=== PATIENT | female | born 1960 | race Caucasian/White ===

== ENCOUNTER 2020-06-17 16:29 | Emergency (ER) | payer BC, OTHER ==
[~2020-06-17] VITALS: Ht 167 cm; Wt 145.0 kg
[2020-06-17 16:30] VITALS: BP 162/90
--- NOTE | 2020-06-17 17:04 | ED Upper Extremity ---
General Chief Complaint: Laceration Stated Complaint: RT THUMB LAC Nursing Triage Note: RIGHT THUMB AVULSION WHILE CUTTING ONIONS. Nursing Sepsis Screen: No Definite Risk Source: spouse History of Present Illness Date Seen by Provider: June 17, 2020 Time Seen by Provider: 16:30 Initial Comments Patient is a right-handed female who presents with skin avulsion/laceration to the tip of her right thumb pad after incising it with a knife. The tip of the thumbnail is involved. The injury occurred just prior to ED arrival. Tetanus is up-to-date. Pain is moderate. Onset: just prior to arrival Pain/Injury Location: right thumb Method of Injury: incised Modifying Factors: Improves With Other Allergies and Home Medications Allergies Coded Allergies: No Known Drug Allergies (Unverified , 06/20/20) Home Medications Cephalexin 500 Mg Capsule, 500 MG PO TID Prescribed by: LUIS SOTO on 06/20/20 1104 Hydrocodone/Acetaminophen 1 Each Tablet, 1 TAB PO Q4H PRN for PAIN-MODERATE (5- 7) Prescribed by: MARLENE LUCIO on 06/17/20 1712 Last Action: New Order Hydrocodone/Acetaminophen 1 Each Tablet, 1 TAB PO Q4H PRN for PAIN-SEVERE (8-10) Prescribed by: LUIS SOTO on 06/20/20 1104 Patient Home Medication List Home Medication List Reviewed: Yes Review of Systems Constitutional: no symptoms reported EENTM: no symptoms reported Respiratory: no symptoms reported Cardiovascular: no symptoms reported Gastrointestinal: no symptoms reported Genitourinary: no symptoms reported Musculoskeletal: see HPI Skin: no symptoms reported Psychiatric/Neurological: No Symptoms Reported All Other Systems Reviewed Negative Unless Noted: Yes Past Fnllezs-Wbehod-Tponfr Hx Past Med/Social Hx: Reviewed Nursing Past Med/Soc Hx Patient Social History Alcohol Use: Denies Use Smoking Status: Never a Smoker Recent Infectious Disease Expo: No Recent Hopitalizations: No Seasonal Allergies Seasonal Allergies: No Past Medical History Surgeries: Yes Section, Gallbladder, Hysterectomy Respiratory: No Cardiac: No Neurological: No Genitourinary: No Gastrointestinal: No Musculoskeletal: No Endocrine: Yes Hypothyroidsim HEENT: No Cancer: No Psychosocial: No Integumentary: No Blood Disorders: No Physical Exam Vital Signs Vital Signs - First Documented 06/17/20 16:30 Temp 36.3 Pulse 85 Resp 16 B/P (MAP) 162/90 (114) Pulse Ox 96 O2 Delivery Room Air Capillary Refill : Less Than 3 Seconds Height, Weight, BMI Height: '" Weight: lbs. oz. kg; 51.00 BMI Method: General Appearance: no apparent distress Hand: Right, laceration (0.5 x 1 cm deep skin avulsion to tip of right thumb involving tip of distal thumb. Continued oozing, no bone involvement. Wound is clean.) Progress/Results/Core Measures Results/Orders Vital Signs/I&O Blood Pressure Mean: 114 Departure Communication (Admissions) Skin defect to tip of left thumb. Wound cleansed and but unable to close due to loss of tissue. Thrombin pad and bandage applied. Patient instructed to follow-up with PCP or return to ED in 3 days for bandage change and reevaluation. Patient verbalizes understanding agreement discharge instructions prior to departure. Impression Primary Impression: Laceration of right thumb with damage to nail Disposition: 01 HOME, SELF-CARE Condition: Stable Departure-Patient Inst. Decision time for Depature: 17:03 Referrals: RUFINO REHMAN MD (PCP/Family) Primary Care Physician Patient Instructions: Wound Care (DC) Add. Discharge Instructions: Please keep wound aziza. Follow-up with your PCP or return to the ED in 3 days for wound reevaluation and change of bandage. All discharge instructions reviewed with patient and/or family. Voiced understanding. Scripts Hydrocodone/Acetaminophen (Hydrocodone-Acetamin 5-325 mg) 1 Each Tablet 1 TAB PO Q4H PRN for PAIN-MODERATE (5-7), #10 TAB Prov: MARLENE LUCIO DO 06/17/20 MARLENE LUCIO DO June 17, 2020 17:04
[2020-06-17] MEDS ORDERED: ACHD5005 PO (17:12)
== END 2020-06-17 17:06 | disposition home or self-care (01) ==
LOC: ER FS 16:31
DX: S61.111A Laceration without foreign body of right thumb with damage to nail, initial encounter (principal); W26.0XXA Contact with knife, initial encounter
CPT/HCPCS: 11730

== ENCOUNTER 2020-06-20 10:24 | Emergency (ER) | payer SELFPAY ==
[~2020-06-20] VITALS: Ht 167 cm; Wt 145.0 kg
[~2020-06-20 10:24] MED LIST: ACHD5005 PO
[2020-06-20 10:28] VITALS: BP 161/94
--- NOTE | 2020-06-20 11:02 | ED Suture Removal/Wound Check ---
Suture/Wound Re-check Suture Removal/Wound Recheck : Suture Removal/Wound Recheck: Dry/sterile dressing-appl Progress On recheck of the avulsion injury of the right thumb, her initial dressing was adhered to the wound and had to be soaked off. After being able to remove this the wound itself was very tender to touch and had some serosanguineous drainage. There was increased redness along the medial and some blanching of the skin along the thumb finger pad. With the increased redness, tenderness and complaints of pain at home will prescribe a short course of antibiotics and dressed the wound with antibiotic ointment. Counseled on follow-up with the clinic if not improving and counseled on return precautions if having worsening symptoms. General Appearance: WD/WN, no apparent distress Neuro/Tendon: normal sensation, normal motor functions, normal tendon functions Skin Exam: warm/dry Physical Exam Vital Signs Vital Signs - First Documented 06/20/20 10:28 Temp 36.3 Pulse 76 Resp 20 B/P (MAP) 161/94 Pulse Ox 99 O2 Delivery Room Air Capillary Refill : General Appearance: WD/WN, no apparent distress Cardiovascular: normal peripheral pulses Extremities: normal range of motion, normal capillary refill, swelling (with tenderness to right thumb around the skin avulsion site. Serosanguineous drainage from avulsion site. mild increase in redness to thumb along the nail and blanched white along pad of thumb) Neurologic/Psychiatric: line service person II-XII nml as tested, alert, oriented x 3 Skin Problem Location: upper extremities (avulsed right thumb tip on pad of finger and partially involving nail) Skin Problem Character: drainage (serosanguineous), erythema, swelling (mild), tenderness Departure Impression Primary Impression: Avulsion of skin of right thumb Qualified Codes: S61.001D - Unspecified open wound of right thumb without damage to nail, subsequent encounter Additional Impression: Cellulitis of thumb, right Disposition: 01 HOME, SELF-CARE Condition: Stable Departure-Patient Inst. Decision time for Depature: 11:05 Referrals: RUFINO REHMAN MD (PCP/Family) Primary Care Physician Patient Instructions: Cellulitis (Skin Infection), Adult ED, Wound Care (DC) Add. Discharge Instructions: Keep wound clean with soap and water. Change dressing on the thumb 2-3 times a day. If you might get the wound dirty or exposed to chemicals then after you apply a thin layer of antibiotic ointment then cover with bandaid, otherwise you could leave it open without a bandaid Check back with clinic if not improving or having worsening problems. If you have fever over 101 F, redness streaking up your arm then seek medical care as you may need IV antibiotics, change in antibiotic or further treatment. Continue to try to elevate the wound above heart level to help with throbbing pain. Use Ibuprofen 800 mg every 8 hours as needed for pain and inflammation. Use the Hydrocodone for severe pain. If taking the Hydrocodone regularly consider taking Miralax or a laxative to hel p prevent constipation. All discharge instructions reviewed with patient and/or family. Voiced understanding. Scripts Hydrocodone/Acetaminophen (Hydrocodone-Acetamin 5-325 mg) 1 Each Tablet 1 TAB PO Q4H PRN for PAIN-SEVERE (8-10) for 3 Days, #18 TAB 0 Refills Prov: LUIS SOTO MD 06/20/20 Cephalexin (Cephalexin) 500 Mg Capsule 500 MG PO TID for cellulitis thumb for 7 Days, #21 CAP 0 Refills Prov: LUIS SOTO MD 06/20/20 Work/School Note: Work Release Form Date Seen in the Emergency Department: June 20, 2020 Return to Work: June 21, 2020 Other Restrictions Listed Below: Limit use of right hand x 1 week LUSI SOTO MD June 20, 2020 11:02
[2020-06-20] MEDS ORDERED: CEPH500C PO (11:04)
[2020-06-20] MEDS ORDERED: ACHD5005 PO (11:04)
== END 2020-06-20 11:05 | disposition home or self-care (01) ==
LOC: EDUNIT# 10:24 → ER FS 10:27
DX: Z48.01 Encounter for change or removal of surgical wound dressing (principal)
CPT/HCPCS: 99282